=== PATIENT | female | born 1990 | race Two or more races ===

== ENCOUNTER 2024-10-13 08:45 | Inpatient (IN) | payer OTHER ==
[~2024-10-13] VITALS: Ht 172.7 cm; Wt 79.4 kg
[2024-10-13 10:28] VITALS: BP 121/82
[2024-10-13 10:32] VITALS: BP 120/75
[2024-10-13] MEDS ORDERED: CRESTOR40 MG PO (10:35)
[2024-10-13] MEDS ORDERED: SINGULAIR10 MG PO (10:35)
[2024-10-13] MEDS ORDERED: ZEPBOUND15 MG/0.5 (10:35)
[2024-10-13] MEDS ORDERED: FLOVEN (10:36)
[2024-10-13] MEDS ORDERED: FOLIC ACID480 MCG (10:37)
[2024-10-13] MEDS ORDERED: VIT D3-VIT K21 EACH PO (10:38)
[2024-10-13] MEDS ORDERED: B COMPLEX1 EACH PO (10:38)
[2024-10-13] MEDS ORDERED: NUTRAFOL (10:39)
[2024-10-13 10:47] LABS: URINE APPEARANCE Clear; URINE BILIRRUBIN Negative (NEGATIVE); URINE BLOOD Moderate; URINE COLOR Dark Yellow; URINE GLUCOSE Negative (NEGATIVE); URINE KETONE Negative (NEGATIVE); URINE LEUKOCYTE Negative; URINE NITRATE Negative; URINE PROTEIN 30 (NEGATIVE)
[2024-10-13 10:52] LABS: URINE BACTERIA 2266.7 uL (0.0-1933); URINE RBC 12.3 uL (0.0-20.8); URINE WBC 12.3 uL (0.0-23.2)
[2024-10-13 11:06] LABS: INR 0.95; PROTHROMBIN TIME 10.4 SECONDS (9.0-11.5)
[2024-10-13 11:40] LABS: URINE CAST 0.58 uL (0.0-1.40)
[2024-10-13 12:21] LABS: RH POSITIVE
[2024-10-17] MEDS ORDERED: VASOPRESSIN 20 UNITS/ML VIAL SPEPROC ONE (12:45)
[2024-10-17] MEDS ORDERED: CLINDAMYCIN PHOSPHATE 150 MG/ML (900mg) IV ONE (17:15)
[2024-10-17] MEDS ORDERED: TRANEXAMIC ACID 100MG/1ML (1000MG) AMPUL IV ONE (17:15)
[2024-10-17] MEDS ORDERED: POVIDONE-IODINE 118 ML BOTT TOP ONE (17:15)
[2024-10-17] MEDS ORDERED: METHYLENE BLUE 50MG/10ML AMP IV ONE (17:15)
[2024-10-17] MEDS ORDERED: GENTAMICIN SULFATE 40 MG/ML VIAL IV ONE (17:15)
[2024-10-17] MEDS ORDERED: KETOROLAC TROMETHAMINE 60 MG VIAL IM STA (21:04)
[2024-10-17] MEDS ORDERED: ACETAMINOPHEN 500 MG GEL..CAP PO SCH (21:06)
[2024-10-17] MEDS ORDERED: GABAPENTIN 300 MG CAPSULE PO SCH (21:07)
[2024-10-17] MEDS ORDERED: RINGERS SOLUTION,LACTATED 1,000 ML IV SCH (21:15)
[2024-10-17] MEDS ORDERED: PROMETHAZINE HCL 25 MG/ML AMPUL IM PRN (21:15)
[2024-10-17] MEDS ORDERED: ONDANSETRON HCL 2 MG/ML VIAL IV ONE (22:40)
[2024-10-18 00:59] VITALS: BP 121/82
[2024-10-18 06:53] LABS: HEMATOCRIT 37.9 % (36.0-45.00); HEMOGLOBIN 13.2 g/dL (12.0-15.00); MEAN CELL VOLUME 88.5 fL (80.00-100.00); MEAN CORPUSCULAR HEMOGLOBIN 30.8 pg (27.00-32.0); MEAN CORPUSCULAR HGB CONC 34.8 g/dl (32.0-36.0); RED BLOOD COUNT 4.28 M/uL (4.00-6.00); RED CELL DISTRIBUTION WIDTH 13.6 % (11.5-14.5)
[2024-10-18 06:54] LABS: PLATELET COUNT 118 K/uL (150-450)
[2024-10-18 08:00] VITALS: BP 103/70
[2024-10-18] MEDS ORDERED: KETOROLAC TROMETHAMINE 30 MG VIAL IV SCH (09:00)
== END 2024-10-18 14:41 | disposition home or self-care (01) | DRG 743 ==
LOC: SURH 10-17 08:45 → O/R 10-17 09:33 → OB/GYN 10-17 09:33 → SURH 10-17 11:45 → OB/GYN 10-17 21:49
PROVIDERS: ADMIT Student in an Organized Health Care Education/Training Program; ATTEND Student in an Organized Health Care Education/Training Program
PROC: 0UDB8ZZ Extraction of Endometrium, Via Natural or Artificial Opening Endoscopic (ICD-10-PCS; 2024-10-17)
PROC: 0UB94ZZ Excision of Uterus, Percutaneous Endoscopic Approach (ICD-10-PCS; 2024-10-17)
PROC: 0WBH4ZZ Excision of Retroperitoneum, Percutaneous Endoscopic Approach (ICD-10-PCS; 2024-10-17)
PROC: 0DBP4ZZ Excision of Rectum, Percutaneous Endoscopic Approach (ICD-10-PCS; 2024-10-17)
PROC: 0UBG4ZZ Excision of Vagina, Percutaneous Endoscopic Approach (ICD-10-PCS; 2024-10-17)
PROC: 0UBF4ZZ Excision of Cul-de-sac, Percutaneous Endoscopic Approach (ICD-10-PCS; 2024-10-17)
PROC: 0UB44ZZ Excision of Uterine Supporting Structure, Percutaneous Endoscopic Approach (ICD-10-PCS; 2024-10-17)
PROC: 3E1P88Z Irrigation of Female Reproductive using Irrigating Substance, Via Natural or Artificial Opening Endoscopic (ICD-10-PCS; 2024-10-17)
PROC: 8E0W4CZ Robotic Assisted Procedure of Trunk Region, Percutaneous Endoscopic Approach (ICD-10-PCS; 2024-10-17)
PROC: 0UB04ZZ Excision of Right Ovary, Percutaneous Endoscopic Approach (ICD-10-PCS; principal; 2024-10-17 11:45)
DX: D25.9 Leiomyoma of uterus, unspecified (principal); N92.0 Excessive and frequent menstruation with regular cycle; R35.0 Frequency of micturition; N80.00 Endometriosis of the uterus, unspecified; D27.1 Benign neoplasm of left ovary; R10.2 Pelvic and perineal pain; Z98.890 Other specified postprocedural states; N94.10 Unspecified dyspareunia; N80.353 Endometriosis of bilateral pelvic sidewall, unspecified depth; N80.101 Endometriosis of right ovary, unspecified depth; N80.329 Endometriosis of the posterior cul-de-sac, unspecified depth; N80.3C3 Endometriosis of bilateral uterosacral ligament(s), unspecified depth; N80.02 Deep endometriosis of the uterus; N80.42 Endometriosis of rectovaginal septum with involvement of vagina
CPT/HCPCS: 58545; 58662; 50715; 58350; S2900

== ENCOUNTER 2025-01-02 11:24 | Inpatient (IN) | payer OTHER ==
[~2025-01-02] VITALS: Ht 167.6 cm; Wt 77.1 kg
[~2025-01-02 11:24] MED LIST: B COMPLEX1 EACH PO; CRESTOR40 MG PO; FLOVEN; FOLIC ACID480 MCG; NUTRAFOL; SINGULAIR10 MG PO; VIT D3-VIT K21 EACH PO; ZEPBOUND15 MG/0.5
--- NOTE | 2025-01-02 11:55 | NUR ---
PTE EN REGISTRADURIA
--- NOTE | 2025-01-02 12:04 | NUR ---
FEMINA REFIERE SER PTE DE DRA.MARLA ROBERTSON QUIEN LA ENVIO PARA SHEYLA DE EMERGENCIAS PARA EVALUACION, PUES PRESENTA UN ABCESO PERIANAL.
[2025-01-02] MEDS ORDERED: 0.9 % SODIUM CHLORIDE 500 ML IV ONE (14:30)
[2025-01-02] MEDS ORDERED: FAMOTIDINE/PF 20 MG/2 ML VIAL IV ONE (14:30)
[2025-01-02] MEDS ORDERED: KETOROLAC TROMETHAMINE 30 MG VIAL ONE (14:42)
[2025-01-02] MEDS ORDERED: FAMOTIDINE/PF 20 MG/2 ML VIAL ONE (14:42)
[2025-01-02] MEDS ORDERED: KETOROLAC TROMETHAMINE 30 MG VIAL IV ONE (14:45)
[2025-01-02] MEDS ORDERED: LACTOBACILLUS ACIDOPHILUS 1 CAP CAP PO ONE ×2 (14:45→15:00)
--- NOTE | 2025-01-02 14:56 | NUR ---
CARRIE COHN EJECUCA ORDENES MEDICAS EN MENDEZ TOTALIDAD
[2025-01-02 15:29] LABS: HEMATOCRIT 40.2 % (34.1-44.9); HEMOGLOBIN 13.9 g/dL (11.2-15.7); INR 0.99; MEAN CORPUSCULAR HEMOGLOBIN 29.8 pg (25.6-32.2); PARTIAL THROMBOPLASTIN TIME 25.9 SECONDS (22.0-34.0); PROTHROMBIN TIME 10.8 SECONDS (9.0-11.5); RED BLOOD COUNT 4.66 M/uL (3.93-5.22); RED CELL DISTRIBUTION WIDTH 12.3 % (11.6-14.4)
[2025-01-02 15:30] LABS: BASO % 0.3 % (0.1-1.2); EOS % 0.7 % (0.7-7.0); LYMPH % 17.3 % (19.3-53.1); MONO % 6.5 % (4.7-12.5); NEUT % 74.9 % (34.0-71.1); PLATELET COUNT 167 K/uL (163-369)
[2025-01-02 15:31] LABS: EOS # 0.07 (0.04-0.54); LYMPH # 1.66 (1.18-3.74); MONO # 0.62 (0.24-0.82); NEUT # 7.16 (1.56-6.13)
[2025-01-02 15:34] LABS: ALBUMIN 3.8 gm/dL (3.4-5.0); BILIRUBIN TOTAL 1.44 mg/dL (0.3-1.2); CALCIUM 8.9 mg/dL (8.5-10.1); CREATININE SERUM 0.67 mg/dL (0.55-1.02); GFR 99.59; GLOBULINA 3.1 G/DL (2.4-3.5); POTASSIUM 3.77 mEq/L (3.5-5.1); TOTAL PROTEIN 6.9 gm/dL (6.4-8.2)
[2025-01-02 15:36] LABS: URINE APPEARANCE Clear; URINE BILIRRUBIN Negative (NEGATIVE); URINE BLOOD Negative; URINE COLOR Yellow; URINE GLUCOSE Negative (NEGATIVE); URINE LEUKOCYTE Negative; URINE NITRATE Negative; URINE PROTEIN Negative (NEGATIVE); URINE UROBILINOGEN 0.2 E.U./dl
[2025-01-02 15:42] LABS: URINE BACTERIA 18.3 uL (0.0-1933); URINE RBC 10.6 uL (0.0-20.8); URINE WBC 6.4 uL (0.0-23.2)
[2025-01-02 15:57] LABS: URINE KETONE 80 (NEGATIVE)
[2025-01-02] MEDS ORDERED: FAMOTIDINE/PF 20 MG in 0.9 % SODIUM CHLORIDE 8 ML IV PUSH SCH (18:37)
[2025-01-02] MEDS ORDERED: KETOROLAC TROMETHAMINE 15 MG VIAL IV PRN (18:45)
[2025-01-02] MEDS ORDERED: ONDANSETRON HCL 4 MG in 0.9 % SODIUM CHLORIDE 50 ML IV PRN (18:45)
[2025-01-02] MEDS ORDERED: ACETAMINOPHEN 500 MG GEL..CAP PO PRN (18:45)
[2025-01-02] MEDS ORDERED: 0.9 % SODIUM CHLORIDE 1,000 ML IV SCH (18:45)
[2025-01-02 19:34] VITALS: BP 114/79
[2025-01-02] MEDS ORDERED: KETOROLAC TROMETHAMINE 30 MG VIAL IV PRN (19:45)
[2025-01-02 20:52] VITALS: BP 107/72; O2SAT 100
[2025-01-02] MEDS ORDERED: LINEZOLID IN DEXTROSE 5% 300 ML IV SCH (21:00)
[2025-01-03 01:05] VITALS: BP 106/70; O2SAT 97
[2025-01-03] MEDS ORDERED: SODIUM CL 0.9% 50 ML IV.SOLN IV ONE (03:56)
[2025-01-03 06:55] LABS: PARTIAL THROMBOPLASTIN TIME 26.8 SECONDS (22.0-34.0); PROTHROMBIN TIME 10.9 SECONDS (9.0-11.5)
[2025-01-03 08:10] VITALS: BP 109/68; O2SAT 96
[2025-01-03] MEDS ORDERED: ROSUVASTATIN CALCIUM 10 MG TABLET PO SCH (09:00)
[2025-01-03] MEDS ORDERED: BUPIVACAINE HCL/MPF 0.5% 30ML VIAL ONE (13:51)
[2025-01-03] MEDS ORDERED: DIBUCAINE 30 GM TUBE ONE (13:51)
[2025-01-03] MEDS ORDERED: POVIDONE-IODINE 118 ML BOTT TOP ONE (13:51)
[2025-01-03] MEDS ORDERED: LIDOCAINE HCL 1%/EPINEPHRINE 20ML VIAL IJ ONE (13:51)
[2025-01-03] MEDS ORDERED: HEMOSTATIC MATRIX WITH THROMBIN KIT TOP ONE (13:54)
[2025-01-03] MEDS ORDERED: CHLORHEXIDINE GLUCONATE 120 ML BOTTLE TOP SCH (16:17)
[2025-01-03] MEDS ORDERED: RINGERS SOLUTION,LACTATED 1,000 ML IV SCH (16:30)
[2025-01-03] MEDS ORDERED: MORPHINE SULFATE 4 MG/ML CARTRIDGE IV PRN (16:30)
[2025-01-03] MEDS ORDERED: OxyCODONE HCL 5 MG TABLET (ROXICODONE) PO PRN (16:30)
[2025-01-03] MEDS ORDERED: GABAPENTIN 300 MG CAPSULE PO SCH (17:00)
[2025-01-03] MEDS ORDERED: MONTELUKAST SODIUM 10 MG TABLET PO SCH (17:00)
[2025-01-03 17:40] VITALS: BP 113/76; O2SAT 95
[2025-01-04 00:18] VITALS: BP 113/73; O2SAT 96
[2025-01-04 06:57] LABS: BASO % 0.4 % (0.1-1.2); EOS # 0.19 (0.04-0.54); EOS % 2.4 % (0.7-7.0); HEMATOCRIT 35.5 % (34.1-44.9); HEMOGLOBIN 12.6 g/dL (11.2-15.7); LYMPH # 1.42 (1.18-3.74); LYMPH % 17.6 % (19.3-53.1); MEAN CORPUSCULAR HEMOGLOBIN 30.4 pg (25.6-32.2); MONO % 8.7 % (4.7-12.5); NEUT # 5.71 (1.56-6.13); NEUT % 70.8 % (34.0-71.1); PLATELET COUNT 160 K/uL (163-369); RED BLOOD COUNT 4.14 M/uL (3.93-5.22)
[2025-01-04 07:37] LABS: ALBUMIN 3.1 gm/dL (3.4-5.0); CALCIUM 8.4 mg/dL (8.5-10.1); CREATININE SERUM 0.5 mg/dL (0.55-1.02); GFR 139.6; MAGNESIUM 1.9 mg/dL (1.8-2.4); PHOSPHOROUS 2.7 mg/dL (2.5-4.9); POTASSIUM 4.03 mEq/L (3.5-5.1)
[2025-01-04 08:00] VITALS: BP 103/67; O2SAT 96
[2025-01-04] MEDS ORDERED: LACTOBACILLUS ACIDOPHILUS 1 CAP CAP PO SCH (09:00)
[2025-01-04] MEDS ORDERED: KETOROLAC TROMETHAMINE 30 MG VIAL IV SCH (09:00)
[2025-01-04] MEDS ORDERED: CHLORHEXIDINE GLUCONATE 120 ML BOTTLE TOP SCH (09:00)
[2025-01-04 16:04] VITALS: BP 116/76; O2SAT 98
[2025-01-04] MEDS ORDERED: CIPROFLOXACIN IN 5 % DEXTROSE 400 MG/200 ML PIGGYBAG IV SCH (17:00)
[2025-01-04] MEDS ORDERED: METRONIDAZOLE/SODIUM CHLORIDE 100 ML IV SCH (17:00)
[2025-01-05 00:48] VITALS: BP 97/59; O2SAT 97
[2025-01-05 08:53] VITALS: BP 118/76; O2SAT 98
[2025-01-05 16:14] VITALS: BP 108/73; O2SAT 96
[2025-01-05] MEDS ORDERED: FAMOtidine 20 MG TABLET PO SCH (21:00)
[2025-01-06 08:00] VITALS: BP 107/74; O2SAT 95
[2025-01-06 08:01] LABS: ALBUMIN 3.1 gm/dL (3.4-5.0); BILIRUBIN TOTAL 0.4 mg/dL (0.3-1.2); CALCIUM 8.5 mg/dL (8.5-10.1); CREATININE SERUM 0.64 mg/dL (0.55-1.02); GLOBULINA 2.9 G/DL (2.4-3.5); POTASSIUM 3.62 mEq/L (3.5-5.1)
[2025-01-06 08:28] LABS: BASO % 0.7 % (0.1-1.2); EOS # 0.29 (0.04-0.54); EOS % 5.4 % (0.7-7.0); HEMATOCRIT 35.5 % (34.1-44.9); HEMOGLOBIN 12.3 g/dL (11.2-15.7); LYMPH # 1.34 (1.18-3.74); MEAN CORPUSCULAR HEMOGLOBIN 30.1 pg (25.6-32.2); MONO # 0.61 (0.24-0.82); MONO % 11.4 % (4.7-12.5); NEUT # 3.07 (1.56-6.13); NEUT % 57.3 % (34.0-71.1); PLATELET COUNT 170 K/uL (163-369); RED BLOOD COUNT 4.09 M/uL (3.93-5.22); RED CELL DISTRIBUTION WIDTH 12.3 % (11.6-14.4)
[2025-01-06] MEDS ORDERED: PEPCID AC20 MG PO (11:12)
[2025-01-06] MEDS ORDERED: METRONIDAZOLE500 MG PO (11:13)
[2025-01-06] MEDS ORDERED: TRAM1TAB98 PO (11:13)
[2025-01-06] MEDS ORDERED: INTESTINEX680 M1 PO (11:13)
[2025-01-06] MEDS ORDERED: CIPRO500 MG PO (11:13)
== END 2025-01-06 13:15 | disposition home or self-care (01) | DRG 349 ==
LOC: ER 11:52 → SURG 18:45 → SURH 01-03 21:40 → SURG 01-03 22:10
PROVIDERS: General Practice; Internal Medicine; ADMIT Surgery; ATTEND Surgery
PROC: 0J9B00Z Drainage of Perineum Subcutaneous Tissue and Fascia with Drainage Device, Open Approach (ICD-10-PCS; 2025-01-03)
PROC: 3E0T3BZ Introduction of Anesthetic Agent into Peripheral Nerves and Plexi, Percutaneous Approach (ICD-10-PCS; 2025-01-03)
PROC: 0DBQ7ZZ Excision of Anus, Via Natural or Artificial Opening (ICD-10-PCS; principal; 2025-01-03 13:00)
DX: K61.0 Anal abscess (principal); K61.31 Horseshoe abscess; E78.5 Hyperlipidemia, unspecified; B96.1 Klebsiella pneumoniae [K. pneumoniae] as the cause of diseases classified elsewhere; B96.89 Other specified bacterial agents as the cause of diseases classified elsewhere

== ENCOUNTER 2025-04-18 11:00 | Day surgery (SDC) | payer OTHER ==
[2025-04-11 11:45] VITALS: BP 116/81
[~2025-04-18] VITALS: Ht 172.7 cm; Wt 77.1 kg
[~2025-04-18 11:00] MED LIST changes: +CIPRO500 MG PO; +DUPIXENT300 MG/2 M; +INTESTINEX680 M1 PO; +METRONIDAZOLE500 MG PO; +PEPCID AC20 MG PO; +SLYND4 MG PO; +TRAM1TAB98 PO
[2025-04-18] MEDS ORDERED: METRONIDAZOLE/SODIUM CHLORIDE 500 MG/100 ML PIGGYBACK IV ONE (13:25)
[2025-04-18] MEDS ORDERED: DIBUCAINE 30 GM TUBE ONE (15:30)
[2025-04-18] MEDS ORDERED: HEMOSTATIC MATRIX 1 KIT KIT TOP ONE (15:30)
[2025-04-18] MEDS ORDERED: BUPIVACAINE HCL/MPF 0.5% 30ML VIAL ONE (15:30)
[2025-04-18] MEDS ORDERED: LIDOCAINE HCL 1%/EPINEPHRINE 20ML VIAL IJ ONE (15:30)
[2025-04-18] MEDS ORDERED: POVIDONE-IODINE 118 ML BOTT TOP ONE (16:30)
[2025-04-18] MEDS ORDERED: levoFLOXacin IN DEXTROSE 5 % 5 MG/ML PIGGYBAG IV ONE (16:30)
[2025-04-18] MEDS ORDERED: NEURONTIN300 MG PO (16:48)
[2025-04-18] MEDS ORDERED: PERCOCET 5-3251 EACH PO (16:49)
[2025-04-18] MEDS ORDERED: CELECOXIB200 MG PO (16:49)
[2025-04-18] MEDS ORDERED: INTESTINEX680 M1 PO (16:49)
== END 2025-04-18 22:15 | disposition home or self-care (01) ==
LOC: CIR.AMB 11:00
PROVIDERS: ATTEND Surgery
DX: K60.321 Anal fistula, complex, initial (principal); K60.50 Anorectal fistula, unspecified; K62.3 Rectal prolapse; Z88.0 Allergy status to penicillin; Z91.013 Allergy to seafood